=== PATIENT | male | born 1950 | race Caucasian/White ===

== ENCOUNTER 2018-08-03 10:01 | Day surgery (SDC) | payer MEDICARE, BC ==
[~2018-08-03 10:01] MED LIST: LIDOCAINE HCL 1% MPF 30 SOL ONE; PROPOFOL 500 MG/50 ML EMU IV ONE
[2018-08-03 12:24] VITALS: BP 115/83; PULSE 80; RESP 18; TEMP 97.4; O2SAT 99
== END 2018-08-03 12:59 | disposition home or self-care (01) | DRG 378 ==
LOC: SURG 10:01
PROVIDERS: ATTEND Surgery
DX: K62.5 Hemorrhage of anus and rectum (principal); K57.32 Diverticulitis of large intestine without perforation or abscess without bleeding; K92.1 Melena
CPT/HCPCS: 43235; G0121; J2001; J2704